=== PATIENT | female | born 2000 | race Two or more races ===

== ENCOUNTER 2019-09-01 07:19 | Emergency (ER) | payer OTHER ==
[~2019-09-01] VITALS: Ht 160 cm; Wt 86.2 kg
[2019-09-01 08:14] VITALS: BP 149/93
[2019-09-01] MEDS ORDERED: HYDROcodone/APAP 5/325MG 1 TAB TABLET PO ONE (08:15)
--- NOTE | 2019-09-01 08:23 | PHYS DOC ---
Past Medical History Past Medical History: No Pertinent History Past Surgical History: No Surgical History Alcohol Use: None Drug Use: None Adult General Chief Complaint Chief Complaint: ANKLE PROBLEM HPI HPI Patient is a 19 year old female patient without history of medical problem who presents with complaint of injury to ankle. Patient states she slipped in parking lot at her work and landed on her elbow and twisted her right ankle. Patient denies head injury or loss of consciousness and other injuries in complaining of right ankle pain and rated her pain 7/10 with rest and 10 over 10 with walking and stated she was not able to remove her boot. Patient denies focal neuro deficit. Review of Systems Review of Systems Constitutional: Denies fever or chills [] Eyes: Denies change in visual acuity, redness, or eye pain [] HENT: Denies nasal congestion or sore throat [] Respiratory: Denies cough or shortness of breath [] Cardiovascular: No additional information not addressed in HPI [] GI: Denies abdominal pain, nausea, vomiting, bloody stools or diarrhea [] : Denies dysuria or hematuria [] Musculoskeletal: Denies back pain, reports joint pain [] Integument: Denies rash or skin lesions [] Neurologic: Denies headache, focal weakness or sensory changes [] Endocrine: Denies polyuria or polydipsia [] All other systems were reviewed and found to be within normal limits, except as documented in this note. Current Medications Current Medications Current Medications Medications (Trade) Dose Ordered Sig/Jeremias Start Time Stop Time Status Last Admin Dose Admin Acetaminophen/ Hydrocodone Bitart (Lortab 5/325) 1 tab 1X ONCE 09/01/19 08:15 09/01/19 08:18 DC 09/01/19 08:44 1 TAB Allergies Allergies Allergies Coded Allergies Type Severity Reaction Last Updated Verified No Known Drug Allergies 09/01/19 No Physical Exam Physical Exam Constitutional: Well developed, well nourished, mild distress, non-toxic appearance. [] HENT: Normocephalic, atraumatic. Eyes: PERRLA, EOMI, conjunctiva normal, no discharge. [] Neck: Normal range of motion, no tenderness, supple, no stridor. [] Cardiovascular:Heart rate regular rhythm, no murmur [] Lungs & Thorax: Bilateral breath sounds clear to auscultation [] Back: No tenderness, no CVA tenderness. [] Extremities: Right ankle with mild edema and tenderness in lateral malleolus without deformity or ecchymosis, ROM intact. Neurologic: Alert and oriented X 3, no focal deficits noted. [] Psychologic: Affect normal, judgement normal, mood normal. [] Current Patient Data Vital Signs Vital Signs Date Time Temp Pulse Resp B/P (MAP) Pulse Ox O2 Delivery O2 Flow Rate FiO2 09/01/19 08:44 16 09/01/19 08:14 97.5 88 149/93 (111) 99 Room Air 97.5 EKG EKG [] Radiology/Procedures Radiology/Procedures [][facility] [address] [place], [place] [id number] IMAGING REPORT Signed PATIENT: DANIELLE WHITE ACCOUNT: [id number] : 2000 LOCATION: ER AGE: 19 SEX: F EXAM STATUS: REG ER ORD. PHYSICIAN: KAMRYN CH MD REASON: Pain from fall today. PROCEDURE: ANKLE RIGHT 3V ANKLE RIGHT 3V History: Fall. Pain. Technique: 3 views right ankle. Comparison: None. Findings: Symmetric ankle mortise. No fracture. Lateral ankle soft tissue swelling. Impression: 1. No acute osseous abnormality. 2. Lateral ankle soft tissue swelling. Electronically signed by: Blas Carter DO (09/01/2019 8:34 AM) [id number] DICTATED and SIGNED BY: BLAS CARTER DO DATE: 09/01/19 08 Course & Med Decision Making Course & Med Decision Making Pertinent Imaging studies reviewed. (See chart for details) Evaluation of patient in ER showed 19-year-old female patient with a fall at working and injury to right ankle. Patient had lateral malleolus edema and tenderness with unremarkable except. Gavin wrap and Aircast splint was applied and patient was advised to avoid of bearing weight and apply ice on the affected area. Dragon Disclaimer Dragon Disclaimer This electronic medical record was generated, in whole or in part, using a voice recognition dictation system. Departure Departure Impression: Primary Impression: Right ankle sprain Additional Impression: Fall on snow Disposition: 01 HOME, SELF-CARE (aT 0934) Condition: IMPROVED Referrals: YUMI ANAND MD (PCP) Patient Instructions: Ankle Sprain Additional Instructions: APPLY ICE ON YOUR ANKLE ELEVATE YOUR RIGHT LEG RETURN TO ER IF NOT GETTING BETTER CONTINUE HOME TYLENOL#3 Scripts Ibuprofen (IBUPROFEN) 800 Mg Tablet 800 MG PO PRN Q8HRS PRN for INFLAMMATION, #20 TAB Prov: KAMRYN CH MD 09/01/19 Problem Qualifiers Primary Impression: Right ankle sprain Encounter type: initial encounter Involved ligament of ankle: unspecified ligament Qualified Codes: S93.401A - Sprain of unspecified ligament of right ankle, initial encounter Additional Impression: Fall on snow Encounter type: subsequent encounter Qualified Codes: W00.0XXD - Fall on same level due to ice and snow, subsequent encounter KAMRYN CH MD Sep 01, 2019 08:23
--- NOTE | 2019-09-01 08:37 | RAD ---
ANKLE RIGHT 3V History: Fall. Pain. Technique: 3 views right ankle. Comparison: None. Findings: Symmetric ankle mortise. No fracture. Lateral ankle soft tissue swelling. Impression: 1. No acute osseous abnormality. 2. Lateral ankle soft tissue swelling. Electronically signed by: Blas Carter DO (09/01/2019 8:34 AM) [id number]
[2019-09-01] MEDS ORDERED: IBUP-1060 PO (09:55)
== END 2019-09-01 10:00 | disposition home or self-care (01) ==
LOC: ER 07:19
DX: S93.401A Sprain of unspecified ligament of right ankle, initial encounter (principal); W00.0XXA Fall on same level due to ice and snow, initial encounter; Y93.89 Activity, other specified; Y92.481 Parking lot as the place of occurrence of the external cause; Y99.0 Civilian activity done for income or pay
CPT/HCPCS: 29515; 73610; 99284-25